=== PATIENT | male | born 1955 | race Caucasian/White ===

== ENCOUNTER 2018-03-13 14:40 | Emergency (ER) | payer MEDICAID ==
[~2018-03-13] VITALS: Ht 175.3 cm; Wt 98.0 kg
[~2018-03-13 14:40] MED LIST: ASPI-1265 PO; FENO45CA PO; FERR325T28 PO; INSU100V36 SQ; LANTUS SQ; LISI-222 PO; NIFE10CA2 PO; NORCO10T PO; OXYC-658 PO; TELM80TA5 PO
[2018-03-13 15:07] VITALS: BP 198/93
[2018-03-13] MEDS ORDERED: LORazepam 1 MG tablet PO ONE (15:25)
[2018-03-13] MEDS ORDERED: ipratropium/albuterol 3ml nebule NEB ONE (15:25)
[2018-03-13] MEDS ORDERED: levoFLOXACIN 250mg tablet PO ONE (15:45)
[2018-03-13 15:55] LABS: BASOPHILS # (AUTO) 0.2 X10'3 (0-0.2); BASOPHILS % (AUTO) 1.6 % (0-1); EOSINOPHILS # (AUTO) 0.2 X10'3 (0-0.9); EOSINOPHILS % (AUTO) 2.6 % (0-6); HEMATOCRIT 26.2 % (42.0-52.0); HEMOGLOBIN 8.9 g/dl (14.0-17.9); LYMPHOCYTES # (AUTO) 0.4 X10'3 (1.1-4.8); LYMPHOCYTES % (AUTO) 4.6 % (21-51); MEAN CORPUSCULAR HEMOGLOBIN 33.7 PG (27.0-31.0); MEAN CORPUSCULAR HGB CONC 34.1 % (33.0-36.5); MEAN CORPUSCULAR VOLUME 99.1 FL (78-98); MONOCYTES # (AUTO) 0.6 X10'3 (0-0.9); NEUTROPHILS # (AUTO) 8.2 X10'3 (1.8-7.7); NEUTROPHILS % (AUTO) 85.2 % (42-75); PLATELET COUNT 136 X10'3 (140-440); RED BLOOD COUNT 2.65 X10'6 (4.70-6.10); RED CELL DISTRIBUTION WIDTH 13.1 % (11.5-14.5); WHITE BLOOD COUNT 9.6 X10'3 (4.5-11.0)
[2018-03-13] MEDS ORDERED: BENZ-38 PO (16:04)
[2018-03-13] MEDS ORDERED: DOXY100C43 PO (16:04)
[2018-03-13] MEDS ORDERED: ALBU8.5H8 IH (16:04)
[2018-03-13] MEDS ORDERED: acetaminophen 325mg tablet PO ONE (16:05)
[2018-03-13 16:12] LABS: ALANINE AMINOTRANSFERASE 17 U/L (12-78); ALBUMIN/GLOBULIN RATIO 0.7 (1.1-1.5); ALKALINE PHOSPHATASE 36 IU/L (46-116); ANION GAP 7 (8-16); ASPARTATE AMINO TRANSFERASE 12 U/L (10-37); BILIRUBIN,TOTAL 0.3 MG/DL (0.1-1.0); BLOOD UREA NITROGEN 43 MG/DL (7-18); BUN/CREATININE RATIO 14.6 (5.4-32.0); CALCIUM 9.2 MG/DL (8.5-10.1); CHLORIDE 107 MMOL/L (99-107); CREATININE 2.95 MG/DL (0.60-1.10); GLUCOSE 179 MG/DL (70-104); POTASSIUM 4.6 MMOL/L (3.5-5.1); SODIUM 140 MMOL/L (135-145); TOTAL CARBON DIOXIDE 26.3 MMOL/L (24-32); TOTAL PROTEIN 7.3 G/DL (6.4-8.2); eGFR 22 ML/MIN
[2018-03-13 16:20] LABS: PLATELET ESTIMATE DECREASED
== END 2018-03-13 17:32 | disposition home or self-care (01) ==
LOC: ER 14:41
DX: J20.9 Acute bronchitis, unspecified (principal); I10 Essential (primary) hypertension; E11.9 Type 2 diabetes mellitus without complications; E78.00 Pure hypercholesterolemia, unspecified; G89.29 Other chronic pain; Z79.4 Long term (current) use of insulin; Z79.02 Long term (current) use of antithrombotics/antiplatelets; Z79.899 Other long term (current) drug therapy; Z98.890 Other specified postprocedural states
CPT/HCPCS: 36415; 71046; 80053; 83605; 83880; 84145; 84484; 85025; 85379; 87040; 87502; 87503; 94640; 99285

== ENCOUNTER 2018-06-07 06:01 | Emergency (ER) | payer MEDICAID ==
[~2018-06-07] VITALS: Ht 175.3 cm; Wt 100.0 kg
[~2018-06-07 06:01] MED LIST changes: +ALBU8.5H8 IH
[2018-06-07 06:07] VITALS: BP 128/62
[2018-06-07] MEDS ORDERED: ketorolac trometh inj. 60 MG/2 ML VIAL IM ONE (06:35)
== END 2018-06-07 07:07 | disposition home or self-care (01) ==
LOC: ER 06:02
DX: G89.29 Other chronic pain (principal); M54.2 Cervicalgia; M54.9 Dorsalgia, unspecified; I10 Essential (primary) hypertension; E11.9 Type 2 diabetes mellitus without complications; E78.00 Pure hypercholesterolemia, unspecified; Z76.0 Encounter for issue of repeat prescription; Z79.82 Long term (current) use of aspirin; Z79.899 Other long term (current) drug therapy; Z86.69 Personal history of other diseases of the nervous system and sense organs
CPT/HCPCS: 96372; 99283; J1885

== ENCOUNTER 2018-08-24 06:20 | Emergency (ER) | payer MEDICAID ==
[~2018-08-24] VITALS: Ht 175.3 cm; Wt 104.4 kg
[2018-08-24 06:24] VITALS: BP 169/80
[2018-08-24] MEDS ORDERED: LIDOcaine/epinephrine TOPICAL 5 ML BTL TOP ONE (06:45)
[2018-08-24] MEDS ORDERED: TETanus/Pertussis (Acell)/Diphther VAC/PF (Tdap-Adult) 0.5ml syringe IM ONE (06:45)
[2018-08-24] MEDS ORDERED: HYDROcodone/acetaminophen 5mg/325mg tablet PO ONE (08:10)
== END 2018-08-24 08:17 | disposition home or self-care (01) ==
LOC: ER 06:20
DX: S51.812A Laceration without foreign body of left forearm, initial encounter (principal); S10.93XA Contusion of unspecified part of neck, initial encounter; I10 Essential (primary) hypertension; E78.00 Pure hypercholesterolemia, unspecified; E11.9 Type 2 diabetes mellitus without complications; G89.29 Other chronic pain; M54.9 Dorsalgia, unspecified; Z79.4 Long term (current) use of insulin; Z79.82 Long term (current) use of aspirin; W18.30XA Fall on same level, unspecified, initial encounter; Y93.89 Activity, other specified; Y92.89 Other specified places as the place of occurrence of the external cause; Y99.8 Other external cause status
CPT/HCPCS: 90471; 90715; 99283

== ENCOUNTER 2019-01-30 12:34 | Inpatient (IN) | payer MEDICAID ==
[2019-01-30] VITALS (10 sets, daily range): BP systolic 128–185; BP diastolic 61–86
[~2019-01-30] VITALS: Ht 175.3 cm; Wt 98.2 kg
[~2019-01-30 12:34] MED LIST changes: +adenosine 3mg/ml 2ml vial IV ONE; +dextrose 50%-water 50ml dispensing syringe IV ONE
[2019-01-30 13:01] LABS: MEAN CORPUSCULAR VOLUME 113.6 FL (78-98); RED BLOOD COUNT 1.84 X10'6 (4.70-6.10); WHITE BLOOD COUNT 6.7 X10'3 (4.5-11.0)
[2019-01-30 13:02] LABS: MEAN CORPUSCULAR HEMOGLOBIN 36.6 PG (27.0-31.0); MEAN CORPUSCULAR HGB CONC 32.2 g/dL (33.0-36.5); MEAN PLATELET VOLUME 11.1 FL (7.4-10.4); PLATELET COUNT 58 X10'3 (140-440); RED CELL DISTRIBUTION WIDTH 16.4 % (11.5-14.5)
[2019-01-30 13:16] LABS: HEMATOCRIT 20.9 % (42.0-52.0); HEMOGLOBIN 6.7 g/dl (14.0-17.9)
[2019-01-30 13:22] LABS: ALANINE AMINOTRANSFERASE 32 U/L (12-78); ALBUMIN 3.1 G/DL (3.4-5.0); ALBUMIN/GLOBULIN RATIO 0.8 (1.1-1.5); ALKALINE PHOSPHATASE 23 IU/L (46-116); ANION GAP 8 (8-16); ASPARTATE AMINO TRANSFERASE 21 U/L (10-37); BILIRUBIN,TOTAL 0.4 MG/DL (0.1-1.0); BLOOD UREA NITROGEN 80 MG/DL (7-18); BUN/CREATININE RATIO 15.7 (5.4-32.0); CALCIUM 8.2 MG/DL (8.5-10.1); CHLORIDE 107 MMOL/L (99-107); CREATININE 5.11 MG/DL (0.60-1.10); GLUCOSE 160 MG/DL (70-104); LIPASE < 50 U/L (73-393); MAGNESIUM 1.9 MG/DL (1.5-2.4); SODIUM 137 MMOL/L (135-145); TOTAL CARBON DIOXIDE 21.8 MMOL/L (24-32); TOTAL PROTEIN 6.8 G/DL (6.4-8.2); eGFR 12 ML/MIN
[2019-01-30 13:23] LABS: POTASSIUM 8.5 MMOL/L (3.5-5.1)
[2019-01-30] MEDS ORDERED: calcium chloride 100 MG/1 ML inj IV ONE ×3 (13:30→17:50)
[2019-01-30] MEDS ORDERED: insulin regular, human 10 units/0.1 ml syringe IV ONE ×2 (13:30→17:50)
[2019-01-30] MEDS ORDERED: sodium polystyrene sulfonate 15gm/60ml oral suspension PO ONE ×2 (13:30→17:50)
[2019-01-30] MEDS ORDERED: normal saline 1000ML IV soln IVB ONE (13:30)
[2019-01-30 13:39] LABS: CLARITY,URINE CLEAR (Clear); COLOR,URINE YELLOW (Yellow); GLUCOSE, URINE NEGATIVE (Neg); KETONES,URINE NEGATIVE (Neg); LEUKOCYTE ESTERASE ,URINE NEGATIVE (Neg); NITRITES, URINE NEGATIVE (Neg); OCCULT BLOOD,URINE LARGE (Neg); PROTEIN,URINE >=300 mg/dl (Neg); UROBILINOGEN,URINE 0.2 E.U/dL (0.2-1.0)
[2019-01-30 13:40] LABS: UA COLLECTION TYPE STRAIGHT CATH
[2019-01-30 13:50] LABS: AMORPHOUS URATES 1+; BACTERIA,URINE NONE SEEN /HPF (Neg); HYALINE CASTS 0-3 /LPF (NEGATIVE); MUCUS STRANDS FEW /LPF (Neg); RBC,URINE 0-2 /HPF (0-2); SPERM FEW /HPF (NEGATIVE); SQUAMOUS EPITHELIAL CELL,UR NONE SEEN /LPF (FEW); WBC,URINE 0-4 /HPF (0-4)
[2019-01-30] MEDS ORDERED: dextrose 50%-water 50ml dispensing syringe IV ONE ×2 (13:50→17:50)
[2019-01-30] MEDS ORDERED: sodium bicarbonate (8.4%) 1 mEq/ml syringe IV ONE (14:15)
[2019-01-30] MEDS ORDERED: normal saline 1000ml 1,000 ML IV SCH (14:16)
[2019-01-30] MEDS ORDERED: HYDROcodone/acetaminophen 5mg/325mg tablet PO PRN (14:20)
[2019-01-30] MEDS ORDERED: acetaminophen 325mg tablet PO PRN (14:20)
[2019-01-30] MEDS ORDERED: ondansetron/PF 4mg/2ml inj IV PRN (14:20)
[2019-01-30] MEDS ORDERED: dextrose ORAL solution 15 GM/59 ML bottle PO PRN ×2 (14:25)
[2019-01-30] MEDS ORDERED: glucagon, human recombinant 1mg kit SUBCUT PRN (14:25)
[2019-01-30] MEDS ORDERED: MESSAGE TO PHARMACY PO ONE (14:25)
[2019-01-30] MEDS ORDERED: dextrose 50%-water 50ml dispensing syringe IV PRN ×2 (14:25)
[2019-01-30] MEDS: morphine 2 MG/ML inj. syringe IV PRN ×2 (14:35→23:54)
[2019-01-30] MEDS ORDERED: nitroGLYCERIN 0.4mg SUBLingual tab SL PRN (14:40)
[2019-01-30] MEDS ORDERED: morphine 4 MG/ML inj SYRINge IV ONE (14:45)
[2019-01-30] MEDS ORDERED: ondansetron/PF 4mg/2ml inj IV ONE (14:45)
[2019-01-30 14:52] LABS: PHOSPHORUS 5.7 MG/DL (2.3-4.5)
[2019-01-30 14:53] LABS: HEMOGLOBIN A1C 6.5 % (4.5-6.2)
[2019-01-30 14:59] LABS: POTASSIUM 7.9 MMOL/L (3.5-5.1)
[2019-01-30] MEDS ORDERED: albuterol 2.5 MG/3 ML nebule NEB SCH (15:00)
[2019-01-30] MEDS: sodium bicarbonate (8.4%) inj. 75 MEQ in dextrose 5% water 500ml 500 ML IV SCH ×4 (15:18→23:05)
[2019-01-30 16:45] LABS: CLARITY,URINE CLOUDY (Clear); COLOR,URINE RED (Yellow); GLUCOSE, URINE NEGATIVE (Neg); KETONES,URINE NEGATIVE (Neg); LEUKOCYTE ESTERASE ,URINE NEGATIVE (Neg); NITRITES, URINE NEGATIVE (Neg); OCCULT BLOOD,URINE LARGE (Neg); PROTEIN,URINE 100 mg/dl (Neg); UROBILINOGEN,URINE 0.2 E.U/dL (0.2-1.0)
[2019-01-30 16:50] LABS: UA COLLECTION TYPE FOLEY CATH
[2019-01-30 16:51] LABS: BACTERIA,URINE FEW /HPF (Neg); MUCUS STRANDS MODERATE /LPF (Neg); RBC,URINE TNTC /HPF (0-2); SQUAMOUS EPITHELIAL CELL,UR MODERATE /LPF (FEW); WBC,URINE 0-4 /HPF (0-4)
[2019-01-30 16:52] LABS: AMORPHOUS URATES 1+; SPERM FEW /HPF (NEGATIVE)
[2019-01-30 16:54] LABS: ALANINE AMINOTRANSFERASE 29 U/L (12-78); ALBUMIN 2.9 G/DL (3.4-5.0); ALBUMIN/GLOBULIN RATIO 0.8 (1.1-1.5); ALKALINE PHOSPHATASE 24 IU/L (46-116); ANION GAP 5 (8-16); ASPARTATE AMINO TRANSFERASE 19 U/L (10-37); BILIRUBIN,TOTAL 0.4 MG/DL (0.1-1.0); BLOOD UREA NITROGEN 75 MG/DL (7-18); BUN/CREATININE RATIO 15.6 (5.4-32.0); CALCIUM 9.6 MG/DL (8.5-10.1); CHLORIDE 110 MMOL/L (99-107); CREATININE 4.82 MG/DL (0.60-1.10); GLUCOSE 155 MG/DL (70-104); SODIUM 140 MMOL/L (135-145); TOTAL CARBON DIOXIDE 24.7 MMOL/L (24-32); TOTAL PROTEIN 6.5 G/DL (6.4-8.2); eGFR 12 ML/MIN
[2019-01-30 16:54] LABS: TOTAL PROTEIN,URINE RANDOM 125.7 MG/DL
[2019-01-30 16:56] LABS: POTASSIUM 8.1 MMOL/L (3.5-5.1)
--- NOTE | 2019-01-30 17:10 | NUR ---
Critical potassium 8.1; Primary care nurse Vicki RN notified
--- NOTE | 2019-01-30 18:25 | NUR ---
Patient in room ICU 2037. I have received report from say shift RN had the opportunity to ask questions and assume patient care. pt resting in bed, all monitoring alarms audible, bicarb gtt waiting on new bag. will treat current potassium as ordered. no c/o pain, no s/s of distress. will continue to monitor.
[2019-01-30] MEDS: docusate sod 100mg capsule PO SCH (20:00)
[2019-01-30 20:35] LABS: HEMOGLOBIN 7.6 g/dl (14.0-17.9)
[2019-01-30 20:36] LABS: HEMATOCRIT 23.2 % (42.0-52.0); MEAN CORPUSCULAR HEMOGLOBIN 35.1 PG (27.0-31.0); MEAN CORPUSCULAR HGB CONC 32.6 g/dL (33.0-36.5); MEAN CORPUSCULAR VOLUME 107.4 FL (78-98); MEAN PLATELET VOLUME 11.1 FL (7.4-10.4); RED BLOOD COUNT 2.16 X10'6 (4.70-6.10); RED CELL DISTRIBUTION WIDTH 21.3 % (11.5-14.5); WHITE BLOOD COUNT 5.5 X10'3 (4.5-11.0)
[2019-01-30 20:43] LABS: PLATELET COUNT 49 X10'3 (140-440)
[2019-01-30 20:51] LABS: ANION GAP 5 (8-16); BLOOD UREA NITROGEN 74 MG/DL (7-18); BUN/CREATININE RATIO 15.3 (5.4-32.0); CALCIUM 9.4 MG/DL (8.5-10.1); CHLORIDE 108 MMOL/L (99-107); CREATININE 4.83 MG/DL (0.60-1.10); GLUCOSE 300 MG/DL (70-104); SODIUM 139 MMOL/L (135-145); TOTAL CARBON DIOXIDE 25.8 MMOL/L (24-32); eGFR 12 ML/MIN
[2019-01-30 21:00] LABS: POTASSIUM 7.4 MMOL/L (3.5-5.1)
[2019-01-30] MEDS ORDERED: temazepam 15mg capsule PO PRN (21:00)
[2019-01-30] MEDS: insulin glargine (Lantus) pen - multi-dose SQ SCH (21:00)
[2019-01-30 22:16] LABS: ALBUMIN 2.9 G/DL (3.4-5.0); ANION GAP 4 (8-16); BLOOD UREA NITROGEN 72 MG/DL (7-18); BUN/CREATININE RATIO 14.6 (5.4-32.0); CALCIUM 9.8 MG/DL (8.5-10.1); CHLORIDE 110 MMOL/L (99-107); CREATININE 4.92 MG/DL (0.60-1.10); GLUCOSE 208 MG/DL (70-104); SODIUM 142 MMOL/L (135-145); TOTAL CARBON DIOXIDE 27.8 MMOL/L (24-32); eGFR 12 ML/MIN
[2019-01-30 22:19] LABS: POTASSIUM 6.7 MMOL/L (3.5-5.1)
--- NOTE | 2019-01-30 22:58 | NUR ---
i Called Bob Radha at this time and notified him of pt HTN. 202 systolic was highest reading. current is 186 systolic. Bob gave order for 10mg of Hydralazine IV. orders entered. i told him that pt appears to have some ST changes particularly in lead 2. a 12 lead was obtained that reports 'suggests ischemia in lateral leads'. this was relayed to Bob. Troponin drawn. no other changes in orders at this time.
[2019-01-30] MEDS ORDERED: hydrALAZINE 20mg/ml inj. IV ONE (23:00)
[2019-01-30 23:39] LABS: ALANINE AMINOTRANSFERASE 33 U/L (12-78); ALBUMIN 3.3 G/DL (3.4-5.0); ALBUMIN/GLOBULIN RATIO 0.9 (1.1-1.5); ALKALINE PHOSPHATASE 27 IU/L (46-116); ANION GAP 3 (8-16); ASPARTATE AMINO TRANSFERASE 25 U/L (10-37); BILIRUBIN,TOTAL 0.4 MG/DL (0.1-1.0); BLOOD UREA NITROGEN 74 MG/DL (7-18); BUN/CREATININE RATIO 15.2 (5.4-32.0); CHLORIDE 107 MMOL/L (99-107); CREATININE 4.86 MG/DL (0.60-1.10); GLUCOSE 267 MG/DL (70-104); PHOSPHORUS 7.1 MG/DL (2.3-4.5); SODIUM 141 MMOL/L (135-145); TOTAL CARBON DIOXIDE 31.1 MMOL/L (24-32); TOTAL PROTEIN 7.1 G/DL (6.4-8.2); TROPONIN I < 0.04 NG/ML (0.0-0.05); eGFR 12 ML/MIN
[2019-01-30 23:46] LABS: POTASSIUM 6.4 MMOL/L (3.5-5.1)
[2019-01-30] MEDS: nitroGLYCERIN-Tridil 50MG/D5W 250 ML IV PRN (23:47)
[2019-01-31] VITALS (30 sets, daily range): BP systolic 115–181; BP diastolic 58–86
[2019-01-31] MEDS ORDERED: morphine 4 MG/ML inj SYRINge IM ONE (00:25)
[2019-01-31] MEDS ORDERED: morphine 2 MG/ML inj. syringe IV PRN (00:25)
[2019-01-31] MEDS ORDERED: morphine 4 MG/ML inj SYRINge IV PRN ×3 (00:25)
[2019-01-31 00:27] LABS: HEMOGLOBIN 8.1 g/dl (14.0-17.9); WHITE BLOOD COUNT 5.4 X10'3 (4.5-11.0)
[2019-01-31 00:29] LABS: HEMATOCRIT 24.5 % (42.0-52.0); MEAN CORPUSCULAR HEMOGLOBIN 35.1 PG (27.0-31.0); MEAN CORPUSCULAR HGB CONC 33.2 g/dL (33.0-36.5); MEAN CORPUSCULAR VOLUME 105.7 FL (78-98); PLATELET COUNT 58 X10'3 (140-440); RED BLOOD COUNT 2.32 X10'6 (4.70-6.10); RED CELL DISTRIBUTION WIDTH 20.7 % (11.5-14.5)
[2019-01-31 00:57] LABS: ANISOCYTOSIS 3+; PLATELET ESTIMATE DECREASED; TOTAL CELLS COUNTED 100
[2019-01-31 00:58] LABS: LARGE PLATELETS FEW; POLYCHROMASIA FEW; STOMATOCYTES FEW
[2019-01-31] MEDS ORDERED: furosemide 40mg/4ml inj IV ONE (01:20)
[2019-01-31 01:42] LABS: PARTIAL THROMBOPLASTIN TIME 25 SECONDS (22-32)
[2019-01-31] MEDS: sodium bicarbonate (8.4%) inj. 75 MEQ in dextrose 5% water 500ml 500 ML IV SCH (03:26)
[2019-01-31 03:47] LABS: HEMOGLOBIN 7.2 g/dl (14.0-17.9); WHITE BLOOD COUNT 5.4 X10'3 (4.5-11.0)
[2019-01-31 03:49] LABS: MEAN CORPUSCULAR HEMOGLOBIN 35.2 PG (27.0-31.0); MEAN CORPUSCULAR HGB CONC 32.9 g/dL (33.0-36.5); MEAN CORPUSCULAR VOLUME 106.9 FL (78-98); MEAN PLATELET VOLUME 10.9 FL (7.4-10.4); RED BLOOD COUNT 2.05 X10'6 (4.70-6.10); RED CELL DISTRIBUTION WIDTH 20.8 % (11.5-14.5)
[2019-01-31 04:21] LABS: ALANINE AMINOTRANSFERASE 31 U/L (12-78); ALBUMIN 2.7 G/DL (3.4-5.0); ALBUMIN/GLOBULIN RATIO 0.8 (1.1-1.5); ALKALINE PHOSPHATASE 24 IU/L (46-116); ANION GAP 2 (8-16); ASPARTATE AMINO TRANSFERASE 32 U/L (10-37); BILIRUBIN,TOTAL 0.5 MG/DL (0.1-1.0); BLOOD UREA NITROGEN 71 MG/DL (7-18); BUN/CREATININE RATIO 14.8 (5.4-32.0); CHLORIDE 109 MMOL/L (99-107); CHOL/HDL RATIO 2.9 (0.00-4.99); CHOLESTEROL 63 MG/DL (0-200); CREATININE 4.79 MG/DL (0.60-1.10); GLUCOSE 227 MG/DL (70-104); HDL CHOLESTEROL 22 MG/DL (35-60); LDL CHOLESTEROL 33 MG/DL (50-100); MAGNESIUM 1.7 MG/DL (1.5-2.4); SODIUM 142 MMOL/L (135-145); TRIGLYCERIDES 64 MG/DL (20-135); eGFR 12 ML/MIN
[2019-01-31 04:26] LABS: POTASSIUM 6.2 MMOL/L (3.5-5.1)
[2019-01-31 04:42] LABS: ANISOCYTOSIS 3+; LARGE PLATELETS FEW; PLATELET ESTIMATE DECREASED; POLYCHROMASIA FEW; STOMATOCYTES FEW; TOTAL CELLS COUNTED 100
--- NOTE | 2019-01-31 05:22 | NUR ---
Late entry: [address] depression in lead II, pt has no c/o pain, labs drawn. 2346 Nitro gtt started pt c/o 8 chest pain, pressure, radiating to right arm, 12 lead, morphine given 001 chest pain 04/08, nitro gtt titrated per protocol 0020 no change in chest pain, audible wheezing, chest xray ordered, morphine IV push orders changed. 0115 orders for lasix one time IV push, chest pain back after being at 010 0445 critical trop 2.05, k 6.2, hct 21.9, plt 49 All orders and critical values where called to Aric Garcia NP throughout night. Addendum: 01/31/19 at 0530 by Shabnam Huang RN No heparin gtt at this time for increased trop d/t H&H, will redraw in 3hrs,
--- NOTE | 2019-01-31 06:26 | NUR ---
Problems reprioritized. Patient report given, questions answered & plan of care reviewed with Mana FERGUSON.
--- NOTE | 2019-01-31 06:30 | NUR ---
Patient in room ICU 2037. I have received report from night coordinator RN and had the opportunity to ask questions and assume patient care.
--- NOTE | 2019-01-31 07:00 | NUR ---
assessing patient, and minimal responsiveness noted, unable to follow commands, does not open eyes, tactile stimulation with minimal response, painful stimuli with slight eye opening. stat abg called for, etco2 applied to patient via nasal cannula, result is 71, abd firm and distended, Intra abdominal pressure applied and result is 25-28 on end expiration. called placed to Dr Escobedo with abg result at 0720, new orders received and implemented.
[2019-01-31 07:21] LABS: ABG BASE EXCESS 3.4 mmol/L (-2.0-3.0); ABG HCO3 30.8 mmol/L (22.0-26.0); ABG PCO2 (T) 65.9 mmHg (35.0-45.0); ABG PH (T) 7.287 (7.350-7.450); ABG PO2 (T) 75.5 mmHg (83-108); ALLEN'S TEST Positive; FCOHb 0.7 % (0.5-1.5); FLOW 2 L/min; FMetHb 0.3 % (0.3-1.12); FO2Hb 93.1 % (94-100); TOTAL HEMOGLOBIN 7.9 G/dl (14.0-17.9)
[2019-01-31] MEDS ORDERED: furosemide 40mg/4ml inj ONE (07:32)
[2019-01-31 07:38] LABS: TROPONIN I 11.17 NG/ML (0.0-0.05)
[2019-01-31] MEDS: docusate sod 100mg capsule PO SCH ×2 (08:00→19:48)
[2019-01-31 09:45] LABS: NUCLEATED RED BLOOD CELLS 1 /100WBC (0-0); PLATELET ESTIMATE DECREASED; TOTAL CELLS COUNTED 100
[2019-01-31 09:47] LABS: ANISOCYTOSIS 1+; POLYCHROMASIA 1+
[2019-01-31 09:50] LABS: HYPOCHROMASIA 1+
[2019-01-31 10:21] LABS: HEMATOCRIT 21.9 % (42.0-52.0)
[2019-01-31 10:21] LABS: ALBUMIN 2.7 G/DL (3.4-5.0); ANION GAP 6 (8-16); BLOOD UREA NITROGEN 71 MG/DL (7-18); BUN/CREATININE RATIO 15.1 (5.4-32.0); CALCIUM 8.7 MG/DL (8.5-10.1); CHLORIDE 107 MMOL/L (99-107); GLUCOSE 211 MG/DL (70-104); POTASSIUM 5.9 MMOL/L (3.5-5.1); SODIUM 143 MMOL/L (135-145); TOTAL CARBON DIOXIDE 30.2 MMOL/L (24-32); eGFR 13 ML/MIN
[2019-01-31 10:22] LABS: PLATELET COUNT 45 X10'3 (140-440)
[2019-01-31 10:36] LABS: ABG BASE EXCESS 2.6 mmol/L (-2.0-3.0); ABG HCO3 28.8 mmol/L (22.0-26.0); ABG OXYGEN SATURATION 84.4 % (95-98); ABG PCO2 (T) 53.3 mmHg (35.0-45.0); ABG PO2 (T) 47.4 mmHg (83-108); ALLEN'S TEST Positive; FCOHb 0.9 % (0.5-1.5); FMetHb 0.2 % (0.3-1.12); FO2Hb 83.5 % (94-100); MINUTE VOLUME 15 L/min; RESPIRATORY RATE 20 b/min; RESPIRATORY RATE (OBSERVED) 25 b/min; TOTAL HEMOGLOBIN 8.5 G/dl (14.0-17.9)
[2019-01-31 12:31] LABS: OCCULT BLOOD STOOL NEGATIVE (Neg)
[2019-01-31] MEDS: ESOMEPRAZOLE 40 MG VIAL IV SCH ×2 (13:18→19:48)
[2019-01-31] MEDS: acetaminophen 325mg tablet PO PRN (13:19)
[2019-01-31 13:25] LABS: TROPONIN I 17.86 NG/ML (0.0-0.05)
--- NOTE | 2019-01-31 13:30 | NUR ---
awake and responding appropriately, verbalizing to remove mask, and that he is thirsty. same done, etco2 via nasal cannula applied to monitor co2 levels level showing 61 .
[2019-01-31 13:50] LABS: CLARITY,URINE CLOUDY (Clear); COLOR,URINE RED (Yellow); GLUCOSE, URINE NEGATIVE (Neg); KETONES,URINE NEGATIVE (Neg); LEUKOCYTE ESTERASE ,URINE NEGATIVE (Neg); NITRITES, URINE NEGATIVE (Neg); OCCULT BLOOD,URINE LARGE (Neg); PROTEIN,URINE 100 mg/dl (Neg); UROBILINOGEN,URINE 0.2 E.U/dL (0.2-1.0)
[2019-01-31 13:57] LABS: UA COLLECTION TYPE NON-SPECIFIED
[2019-01-31 13:59] LABS: RBC,URINE TNTC /HPF (0-2)
[2019-01-31 14:00] LABS: BACTERIA,URINE 1+ /HPF (Neg); SQUAMOUS EPITHELIAL CELL,UR FEW /LPF (FEW); WBC,URINE 0-4 /HPF (0-4)
--- NOTE | 2019-01-31 15:00 | NUR ---
sitting at edge of bed, tolerating well, does not remember any events from yesterday or today, needs frequent reminding of current events. drinking water without problems, does not want to eat.
[2019-01-31] MEDS ORDERED: heparin 10,000 units/1 ML INJ IV ONE (16:10)
[2019-01-31] MEDS ORDERED: heparin 25,000 UNIT/250ml bag 250 ML IV SCH (16:10)
[2019-01-31] MEDS ORDERED: heparin 10,000 units/1 ML INJ IV PRN (16:10)
--- NOTE | 2019-01-31 16:30 | NUR ---
bipap off, tolerating well, mentation clear, awake and alert
--- NOTE | 2019-01-31 18:25 | NUR ---
Patient in room ICU 2037. I have received report from Mana HAGEN and had the opportunity to ask questions and assume patient care. Addendum: 01/31/19 at 1925 by Shabnam Huang RN Patient in room ICU 2037. I have received report from Mana FERGUSON and had the opportunity to ask questions and assume patient care. Pt resting in bed, no c/o pain, VSS, no s/s of distress, see interventions, 1LNC with spo2 at 96%, Nitro gtt for chest pain control, see IV spreadsheet for more information. All monitoring alarms audible. Labs pending. Will continue to monitor.
[2019-01-31] MEDS ORDERED: NIFE60TA79 PO (19:17)
[2019-01-31] MEDS ORDERED: CARV-50 PO (19:30)
[2019-01-31] MEDS ORDERED: INSU100I8 SQ (19:30)
[2019-01-31] MEDS ORDERED: GABA-532 PO (19:30)
[2019-01-31] MEDS ORDERED: LISI40TA4 (19:30)
[2019-01-31] MEDS ORDERED: FLUT16SP26 (19:30)
[2019-01-31] MEDS ORDERED: LANTUS SQ (19:30)
[2019-01-31] MEDS ORDERED: CETI10TA14 PO (19:30)
[2019-01-31] MEDS ORDERED: VENL37.589 PO (19:30)
[2019-01-31] MEDS ORDERED: FENO134C PO (19:30)
[2019-01-31] MEDS ORDERED: FLO0.4C PO (19:30)
[2019-01-31] MEDS: nitroGLYCERIN-Tridil 50MG/D5W 250 ML IV PRN (19:49)
[2019-01-31 19:54] LABS: MEAN CORPUSCULAR HGB CONC 33.3 g/dL (33.0-36.5)
[2019-01-31 19:56] LABS: HEMATOCRIT 26.2 % (42.0-52.0); HEMOGLOBIN 8.7 g/dl (14.0-17.9); MEAN CORPUSCULAR HEMOGLOBIN 33.3 PG (27.0-31.0); MEAN CORPUSCULAR VOLUME 99.8 FL (78-98); MEAN PLATELET VOLUME 11.1 FL (7.4-10.4); RED BLOOD COUNT 2.62 X10'6 (4.70-6.10); RED CELL DISTRIBUTION WIDTH 23.3 % (11.5-14.5); WHITE BLOOD COUNT 6.3 X10'3 (4.5-11.0)
[2019-01-31 20:03] LABS: PLATELET COUNT 40 X10'3 (140-440)
[2019-01-31 20:14] LABS: TROPONIN I 14.96 NG/ML (0.0-0.05)
--- NOTE | 2019-01-31 20:15 | NUR ---
Called Aric Garcia NP regarding critical troponin of 14.96, which is improved from 17.86, no change in orders. Also notified WORKDAY DIRECTOR of critical platelets of 40, no change in orders. Reviewed Dr. Gu's recommendations of keeping hgb around 10 and pt is currently 8.7, per Radha WORKDAY DIRECTOR will recheck H&H with am labs, no orders to give blood products at this time.
[2019-01-31 20:21] LABS: ALANINE AMINOTRANSFERASE 29 U/L (12-78); ALBUMIN 2.7 G/DL (3.4-5.0); ALBUMIN/GLOBULIN RATIO 0.8 (1.1-1.5); ALKALINE PHOSPHATASE 25 IU/L (46-116); ANION GAP 4 (8-16); ASPARTATE AMINO TRANSFERASE 58 U/L (10-37); BILIRUBIN,TOTAL 1.1 MG/DL (0.1-1.0); BLOOD UREA NITROGEN 73 MG/DL (7-18); BUN/CREATININE RATIO 15.8 (5.4-32.0); CALCIUM 8.4 MG/DL (8.5-10.1); CHLORIDE 105 MMOL/L (99-107); CREATININE 4.61 MG/DL (0.60-1.10); GLUCOSE 191 MG/DL (70-104); POTASSIUM 4.9 MMOL/L (3.5-5.1); SODIUM 142 MMOL/L (135-145); TOTAL PROTEIN 6.2 G/DL (6.4-8.2); eGFR 13 ML/MIN
[2019-01-31 20:25] LABS: ANISOCYTOSIS 3+; PLATELET ESTIMATE DECREASED; TOTAL CELLS COUNTED 100
[2019-01-31 20:26] LABS: POLYCHROMASIA FEW; STOMATOCYTES 1+
--- NOTE | 2019-01-31 20:37 | NUR ---
Patient refused oral care and bed bath, educated pt still refusing at this time. Will continue to monitor.
[2019-01-31] MEDS: insulin glargine (Lantus) pen - multi-dose SQ SCH (21:24)
[2019-02-01] VITALS (18 sets, daily range): BP systolic 96–183; BP diastolic 43–85
[2019-02-01] MEDS: acetaminophen 325mg tablet PO PRN (01:23)
--- NOTE | 2019-02-01 04:21 | NUR ---
Pt awake, alert and orientated x4, eating saltine crackers and watching TV, no complaints of pain, VSS. Pt stating that he wants to go home.
[2019-02-01 05:22] LABS: WHITE BLOOD COUNT 5.7 X10'3 (4.5-11.0)
[2019-02-01 05:24] LABS: HEMATOCRIT 24.5 % (42.0-52.0); HEMOGLOBIN 8.4 g/dl (14.0-17.9); MEAN CORPUSCULAR HGB CONC 34.3 g/dL (33.0-36.5); MEAN CORPUSCULAR VOLUME 99.3 FL (78-98); MEAN PLATELET VOLUME 11.6 FL (7.4-10.4); RED BLOOD COUNT 2.46 X10'6 (4.70-6.10); RED CELL DISTRIBUTION WIDTH 22.8 % (11.5-14.5)
[2019-02-01 05:27] LABS: PLATELET COUNT 40 X10'3 (140-440)
[2019-02-01 05:46] LABS: ALANINE AMINOTRANSFERASE 32 U/L (12-78); ALBUMIN 2.5 G/DL (3.4-5.0); ALBUMIN/GLOBULIN RATIO 0.7 (1.1-1.5); ALKALINE PHOSPHATASE 23 IU/L (46-116); ANION GAP 7 (8-16); ASPARTATE AMINO TRANSFERASE 44 U/L (10-37); BILIRUBIN,TOTAL 0.9 MG/DL (0.1-1.0); BLOOD UREA NITROGEN 70 MG/DL (7-18); CALCIUM 7.8 MG/DL (8.5-10.1); CHLORIDE 103 MMOL/L (99-107); CREATININE 4.37 MG/DL (0.60-1.10); GLUCOSE 135 MG/DL (70-104); MAGNESIUM 1.4 MG/DL (1.5-2.4); POTASSIUM 4.6 MMOL/L (3.5-5.1); SODIUM 142 MMOL/L (135-145); TOTAL CARBON DIOXIDE 31.8 MMOL/L (24-32); eGFR 14 ML/MIN
[2019-02-01 05:58] LABS: ANISOCYTOSIS 3+; PLATELET ESTIMATE DECREASED; POLYCHROMASIA FEW; STOMATOCYTES 1+; TOTAL CELLS COUNTED 100
--- NOTE | 2019-02-01 06:28 | NUR ---
Problems reprioritized. Patient report given, questions answered & plan of care reviewed with Mana FERGUSON.
[2019-02-01] MEDS: ESOMEPRAZOLE 40 MG VIAL IV SCH (08:20)
[2019-02-01] MEDS: docusate sod 100mg capsule PO SCH (08:20)
[2019-02-01] MEDS: insulin Lispro (HumaLOG) vial - multi-dose SQ SCH ×2 (08:39→13:25)
[2019-02-01] MEDS ORDERED: nitroGLYCERIN 0.4mg SUBLingual tab SL PRN (10:00)
[2019-02-01] MEDS ORDERED: cetirizine 10mg tablet PO PRN (10:05)
[2019-02-01] MEDS ORDERED: MYCOL15CR TP (11:46)
[2019-02-01] MEDS ORDERED: carVEDilol 12.5mg tablet PO SCH (11:58)
[2019-02-01] MEDS ORDERED: venlafaxine XR 37.5mg cap (Q24H) PO SCH (11:59)
[2019-02-01] MEDS ORDERED: gabapentin 300mg capsule PO SCH (11:59)
[2019-02-01] MEDS ORDERED: fluticasone nasal spray 16GM bottle NS SCH (11:59)
[2019-02-01] MEDS ORDERED: ferrous sulfate 325mg tablet PO SCH (11:59)
[2019-02-01] MEDS ORDERED: fenofibrate 145mg tablet PO SCH (12:00)
[2019-02-01] MEDS ORDERED: NIFEdipine XL 30mg tablet PO SCH (12:00)
[2019-02-01 12:32] LABS: RED BLOOD COUNT 2.78 X10'6 (4.70-6.10)
[2019-02-01 12:34] LABS: RETICULOCYTE % (AUTO) 1.2 % (0.5-1.5)
--- NOTE | 2019-02-01 12:37 | NUR ---
RN consult for renal diet education: patient has GFR of 12; choosing not to pursue dialysis. Patient admitted with hyperkalemia, now corrected. Has elevated phosphorus of 6, not currently on any binders. Patient and SO met at bedside and given written CKD handout for non-dialysis renal diet education, discussed phosphorus, potassium, sodium, fluids, and protein recommendations and provided RD contact information if any additional questions. Addendum: 02/01/19 at [address] Amended: Links added.
[2019-02-01 12:57] LABS: TROPONIN I 6.17 NG/ML (0.0-0.05)
[2019-02-01] MEDS ORDERED: nystatin/triamcinolone cream 15gm TP SCH ×2 (13:00)
--- NOTE | 2019-02-01 14:25 | NUR ---
Dr Escobedo notified that pt was 86% on RA when ambulating. Ordered home O2. Notified Sophia telephonic case manager.
--- NOTE | 2019-02-01 14:28 | NUR ---
O2 Sat at rest on room air:92___% If below 89%: Recovery O2 Sat at rest on ___LPM:___%:___% via (mask/nasal cannula, etc..) No further documentation is necessary. If O2 Sat did not drop below 89% on room air,ambulate patient on room air. O2 Sat while ambulating on room air:_86__% Recovery O2 Sat while ambulating on __92_LPM:___% No further documentation is necessary. If patient does not drop below 89% while ambulating, he/she does not qualify for home O2.
--- NOTE | 2019-02-01 14:55 | NUR ---
R wrist PIV and R FA PIV d/c canula intact, patient tolerated well, held additional length of pressure due to low platelets, no bleeding noted, dressed with 2x2 and paper tape
--- NOTE | 2019-02-01 15:10 | NUR ---
RN provided bedside teaching to pt and regarding [place], acute resp failure, DM survival skills and anemia. RN also provided med teachings on new and current medications. Pt signed AMA form, RN advised and RN to go to ED if having chest pains and/or shortness of breath. Pt has a follow up with db2 systems programmer on 03/05. Pt left ICU at 1510 via wheelchair with tech, spouse took all personal belongings.
[2019-02-02 13:18] LABS: HEP B CORE AB, IGM Negative (Negative); HEPATITIS C ANTIBODY <0.1 s/co ratio (0.0-0.9)
[2019-02-03 11:41] LABS: OCCULT BLOOD STOOL NEGATIVE (Neg)
== END 2019-02-01 15:15 | disposition home or self-care (01) | DRG 190 ==
LOC: ER 12:34 → EDBEDREQSVC 15:04 → ICU 2S 16:56 → CMPBEDREQ 02-01 15:15
PROVIDERS: ADMIT Internal Medicine; ATTEND Internal Medicine Critical Care Medicine
PROC: 30233N1 Transfusion of Nonautologous Red Blood Cells into Peripheral Vein, Percutaneous Approach (ICD-10-PCS; principal; 2019-01-30)
PROC: 30233N1 Transfusion of Nonautologous Red Blood Cells into Peripheral Vein, Percutaneous Approach (ICD-10-PCS; 2019-01-31)
PROC: 5A09357 Assistance with Respiratory Ventilation, Less than 24 Consecutive Hours, Continuous Positive Airway Pressure (ICD-10-PCS; 2019-01-31)
PROC: 30233N1 Transfusion of Nonautologous Red Blood Cells into Peripheral Vein, Percutaneous Approach (ICD-10-PCS; 2019-02-01)
DX: I21.A1 Myocardial infarction type 2 (principal); J96.01 Acute respiratory failure with hypoxia; G93.40 Encephalopathy, unspecified; J96.02 Acute respiratory failure with hypercapnia; N17.9 Acute kidney failure, unspecified; K92.2 Gastrointestinal hemorrhage, unspecified; D69.6 Thrombocytopenia, unspecified; E11.22 Type 2 diabetes mellitus with diabetic chronic kidney disease; E87.5 Hyperkalemia; F11.20 Opioid dependence, uncomplicated; D64.9 Anemia, unspecified; E78.00 Pure hypercholesterolemia, unspecified; E78.5 Hyperlipidemia, unspecified; E87.6 Hypokalemia; G89.4 Chronic pain syndrome; I12.9 Hypertensive chronic kidney disease with stage 1 through stage 4 chronic kidney disease, or unspecified chronic kidney disease; K21.9 Gastro-esophageal reflux disease without esophagitis; N40.0 Benign prostatic hyperplasia without lower urinary tract symptoms; N18.9 Chronic kidney disease, unspecified; I25.10 Atherosclerotic heart disease of native coronary artery without angina pectoris; M54.9 Dorsalgia, unspecified; R21 Rash and other nonspecific skin eruption; Z79.899 Other long term (current) drug therapy; Z79.4 Long term (current) use of insulin; Z79.82 Long term (current) use of aspirin
CPT/HCPCS: 36415; 36430; 36600; 71045; 74018; 76775; 80048; 80053; 80061; 81001; 82272; 82570; 82803; 82948; 83036; 83540; 83550; 83605; 83690; 83735; 83880; 84100; 84132; 84156; 84300; 84439; 84443; 84484; 85018; 85025; 85027; 85045; 85610; 85730; 86705; 86706; 86803; 86885; 86900; 86901; 86920; 87040; 87081; 93005; 93306; 93308; 94640; 94660; 94760; 96374; 96375; 97110; 97161; 97530; 99291; G0378; J0153; J0360; J1815; J1940; J2270; J2405; J3490; J7999; P9016

== ENCOUNTER 2019-03-07 07:07 | Emergency (ER) | payer MEDICAID ==
[~2019-03-07] VITALS: Ht 170.2 cm; Wt 98.0 kg
[~2019-03-07 07:07] MED LIST changes: -ALBU8.5H8 IH; -ASPI-1265 PO; +CARV-50 PO; +CETI10TA14 PO; +FENO134C PO; -FENO45CA PO; +FLO0.4C PO; +FLUT16SP26; +GABA-532 PO; +INSU100I8 SQ; -INSU100V36 SQ; -LISI-222 PO; +MYCOL15CR TP; -NIFE10CA2 PO; +NIFE60TA79 PO; -NORCO10T PO; -OXYC-658 PO; -TELM80TA5 PO; +VENL37.589 PO; -adenosine 3mg/ml 2ml vial IV ONE; -dextrose 50%-water 50ml dispensing syringe IV ONE
[2019-03-07 07:10] VITALS: BP 183/82
[2019-03-07] MEDS ORDERED: LIDOcaine 1% w/epiNEPHrine 1:200,000 30ml vial IM ONE (07:55)
[2019-03-07] MEDS ORDERED: LIDOcaine 1% w/EPI 1:100,000 30ml vial (MDV) IJ ONE (08:00)
== END 2019-03-07 08:45 | disposition home or self-care (01) ==
LOC: ER 07:07
DX: L72.3 Sebaceous cyst (principal); E78.00 Pure hypercholesterolemia, unspecified; I10 Essential (primary) hypertension; E11.9 Type 2 diabetes mellitus without complications; G89.29 Other chronic pain; Z86.69 Personal history of other diseases of the nervous system and sense organs; Z98.890 Other specified postprocedural states; Z79.4 Long term (current) use of insulin; Z79.899 Other long term (current) drug therapy
CPT/HCPCS: 10060; 99283

== ENCOUNTER 2019-03-22 07:24 | Emergency (ER) | payer MEDICAID ==
[~2019-03-22] VITALS: Ht 175.3 cm; Wt 97.7 kg
[2019-03-22] MEDS ORDERED: nitroGLYCERIN 1gm ointment UD TP ONE (08:00)
[2019-03-22 08:02] LABS: LYMPHOCYTES # (AUTO) 0.7 X10'3 (1.1-4.8); MONOCYTES # (AUTO) 0.4 X10'3 (0-0.9)
[2019-03-22 08:04] LABS: BASOPHILS % (AUTO) 0.6 % (0-1); EOSINOPHILS % (AUTO) 0.8 % (0-6); LYMPHOCYTES % (AUTO) 16.1 % (21-51); MEAN CORPUSCULAR HEMOGLOBIN 34.1 PG (27.0-31.0); MEAN CORPUSCULAR HGB CONC 32.9 g/dL (33.0-36.5); MEAN CORPUSCULAR VOLUME 103.6 FL (78-98); MEAN PLATELET VOLUME 11.5 FL (7.4-10.4); MONOCYTES % (AUTO) 10.1 % (2-12); NEUTROPHILS # (AUTO) 3.2 X10'3 (1.8-7.7); NEUTROPHILS % (AUTO) 72.4 % (42-75); PLATELET COUNT 90 X10'3 (140-440); RED BLOOD COUNT 1.98 X10'6 (4.70-6.10); RED CELL DISTRIBUTION WIDTH 23.7 % (11.5-14.5); WHITE BLOOD COUNT 4.4 X10'3 (4.5-11.0)
[2019-03-22 08:11] LABS: PARTIAL THROMBOPLASTIN TIME 28 SECONDS (22-32)
[2019-03-22 08:13] LABS: ALANINE AMINOTRANSFERASE 17 U/L (12-78); ALBUMIN/GLOBULIN RATIO 0.8 (1.1-1.5); ALKALINE PHOSPHATASE 24 IU/L (46-116); ANION GAP 9 (8-16); ASPARTATE AMINO TRANSFERASE 15 U/L (10-37); BILIRUBIN,TOTAL 0.4 MG/DL (0.1-1.0); BLOOD UREA NITROGEN 46 MG/DL (7-18); BUN/CREATININE RATIO 14.5 (5.4-32.0); CALCIUM 8.5 MG/DL (8.5-10.1); CHLORIDE 108 MMOL/L (99-107); CREATININE 3.18 MG/DL (0.60-1.10); GLUCOSE 244 MG/DL (70-104); POTASSIUM 5.1 MMOL/L (3.5-5.1); SODIUM 140 MMOL/L (135-145); TOTAL CARBON DIOXIDE 23.5 MMOL/L (24-32); TOTAL PROTEIN 6.9 G/DL (6.4-8.2); eGFR 20 ML/MIN
[2019-03-22 08:31] LABS: HEMATOCRIT 20.5 % (42.0-52.0); HEMOGLOBIN 6.7 g/dl (14.0-17.9)
[2019-03-22 08:33] VITALS: BP 141/73
[2019-03-22] MEDS ORDERED: NITR0.4T51 SL (08:40)
[2019-03-22 08:41] LABS: TOTAL CELLS COUNTED 100
[2019-03-22 08:42] LABS: ANISOCYTOSIS 3+; PLATELET ESTIMATE DECREASED
[2019-03-22 08:43] LABS: POLYCHROMASIA FEW; STOMATOCYTES 1+
[2019-03-22 08:44] LABS: HYPOCHROMASIA 1+
[2019-03-22 08:45] LABS: TEAR DROP CELLS FEW
[2019-03-22 08:46] LABS: LARGE PLATELETS MODERATE
== END 2019-03-22 09:04 | disposition left against medical advice (07) ==
LOC: ER 07:24
DX: R07.89 Other chest pain (principal); E78.00 Pure hypercholesterolemia, unspecified; I10 Essential (primary) hypertension; E11.9 Type 2 diabetes mellitus without complications; G89.29 Other chronic pain; Z86.69 Personal history of other diseases of the nervous system and sense organs; Z98.890 Other specified postprocedural states; Z79.4 Long term (current) use of insulin; Z79.899 Other long term (current) drug therapy
CPT/HCPCS: 36415; 71045; 80053; 84484; 85025; 85610; 85730; 93005; 99284

== ENCOUNTER 2019-04-03 08:34 | Emergency (ER) | payer MEDICAID ==
[~2019-04-03] VITALS: Ht 175.3 cm; Wt 102.8 kg
[~2019-04-03 08:34] MED LIST changes: +NITR0.4T51 SL
[2019-04-03] MEDS ORDERED: LIDOcaine 2% 10ml TOPICAL JELLY (Urojet) MM ONE (08:50)
[2019-04-03 09:43] VITALS: BP 162/69
[2019-04-03 09:52] LABS: ALANINE AMINOTRANSFERASE 14 U/L (12-78); ALBUMIN 3.1 G/DL (3.4-5.0); ALBUMIN/GLOBULIN RATIO 0.7 (1.1-1.5); ALKALINE PHOSPHATASE 25 IU/L (46-116); ANION GAP 10 (8-16); ASPARTATE AMINO TRANSFERASE 15 U/L (10-37); BILIRUBIN,TOTAL 0.4 MG/DL (0.1-1.0); BLOOD UREA NITROGEN 46 MG/DL (7-18); BUN/CREATININE RATIO 12.8 (5.4-32.0); CALCIUM 8.7 MG/DL (8.5-10.1); CHLORIDE 110 MMOL/L (99-107); GLUCOSE 61 MG/DL (70-104); POTASSIUM 5.2 MMOL/L (3.5-5.1); SODIUM 143 MMOL/L (135-145); TOTAL CARBON DIOXIDE 23.3 MMOL/L (24-32); TOTAL PROTEIN 7.4 G/DL (6.4-8.2); eGFR 17 ML/MIN
[2019-04-03 09:58] LABS: PLATELET COUNT 75 X10'3 (140-440)
[2019-04-03 10:00] LABS: MEAN CORPUSCULAR HEMOGLOBIN 35.3 PG (27.0-31.0); MEAN CORPUSCULAR HGB CONC 32.1 g/dL (33.0-36.5); MEAN CORPUSCULAR VOLUME 109.7 FL (78-98); MEAN PLATELET VOLUME 11.4 FL (7.4-10.4); RED BLOOD COUNT 1.72 X10'6 (4.70-6.10); RED CELL DISTRIBUTION WIDTH 24.6 % (11.5-14.5); WHITE BLOOD COUNT 5.4 X10'3 (4.5-11.0)
[2019-04-03 10:07] LABS: CLARITY,URINE CLEAR (Clear); COLOR,URINE YELLOW (Yellow); GLUCOSE, URINE NEGATIVE (Neg); KETONES,URINE NEGATIVE (Neg); LEUKOCYTE ESTERASE ,URINE NEGATIVE (Neg); NITRITES, URINE NEGATIVE (Neg); OCCULT BLOOD,URINE TRACE-LYSED (Neg); PH,URINE 5.5 (4.8-8.0); PROTEIN,URINE 100 mg/dl (Neg); UROBILINOGEN,URINE 0.2 E.U/dL (0.2-1.0)
[2019-04-03 10:11] LABS: HEMATOCRIT 18.9 % (42.0-52.0); HEMOGLOBIN 6.1 g/dl (14.0-17.9)
[2019-04-03 10:13] LABS: UA COLLECTION TYPE FOLEY CATH
[2019-04-03 10:28] LABS: BACTERIA,URINE NONE SEEN /HPF (Neg); COARSE GRANULAR CAST 0-3 /LPF (NEGATIVE); MUCUS STRANDS FEW /LPF (Neg); RBC,URINE 0-2 /HPF (0-2); SQUAMOUS EPITHELIAL CELL,UR NONE SEEN /LPF (FEW); WBC,URINE 0-4 /HPF (0-4)
[2019-04-03] MEDS ORDERED: DOXY-1 PO (10:28)
[2019-04-03] MEDS ORDERED: lactulose 20gm/30ml cup PO ONE (10:30)
[2019-04-03 10:57] LABS: ANISOCYTOSIS 3+; NUCLEATED RED BLOOD CELLS 1 /100WBC (0-0); PLATELET ESTIMATE DECREASED; TOTAL CELLS COUNTED 100
[2019-04-03 10:58] LABS: HYPOCHROMASIA 1+; POLYCHROMASIA 2+; TEAR DROP CELLS 1+
== END 2019-04-03 10:40 | disposition home or self-care (01) ==
LOC: ER 08:35
DX: R33.9 Retention of urine, unspecified (principal); N41.8 Other inflammatory diseases of prostate; E87.5 Hyperkalemia; R10.2 Pelvic and perineal pain; I12.9 Hypertensive chronic kidney disease with stage 1 through stage 4 chronic kidney disease, or unspecified chronic kidney disease; E11.22 Type 2 diabetes mellitus with diabetic chronic kidney disease; N18.9 Chronic kidney disease, unspecified; G89.29 Other chronic pain; E78.00 Pure hypercholesterolemia, unspecified; Z98.890 Other specified postprocedural states; Z79.4 Long term (current) use of insulin
CPT/HCPCS: 36415; 51702; 80053; 81001; 85025; 99284

== ENCOUNTER 2019-04-04 10:50 | Inpatient (IN) | payer MEDICAID ==
[2019-04-04] VITALS (7 sets, daily range): BP systolic 106–148; BP diastolic 55–75
[~2019-04-04] VITALS: Ht 175.3 cm; Wt 98.2 kg
[~2019-04-04 10:50] MED LIST changes: +DOXY-1 PO
[2019-04-04 11:49] LABS: MEAN CORPUSCULAR VOLUME 108.6 FL (78-98); RED BLOOD COUNT 1.71 X10'6 (4.70-6.10); WHITE BLOOD COUNT 4.9 X10'3 (4.5-11.0)
[2019-04-04 11:51] LABS: MEAN CORPUSCULAR HEMOGLOBIN 35.2 PG (27.0-31.0); MEAN CORPUSCULAR HGB CONC 32.4 g/dL (33.0-36.5); MEAN PLATELET VOLUME 10.7 FL (7.4-10.4); PLATELET COUNT 82 X10'3 (140-440); RED CELL DISTRIBUTION WIDTH 24.4 % (11.5-14.5)
[2019-04-04 11:57] LABS: HEMATOCRIT 18.5 % (42.0-52.0)
[2019-04-04] MEDS ORDERED: normal saline 1000ML IV soln IVB ONE (12:00)
[2019-04-04] MEDS ORDERED: ondansetron/PF 4mg/2ml inj IV ONE (12:00)
[2019-04-04] MEDS ORDERED: morphine 4 MG/ML inj SYRINge IV PRN (12:00)
[2019-04-04 12:18] LABS: ALANINE AMINOTRANSFERASE 14 U/L (12-78); ALBUMIN/GLOBULIN RATIO 0.7 (1.1-1.5); ALKALINE PHOSPHATASE 24 IU/L (46-116); ANION GAP 10 (8-16); ASPARTATE AMINO TRANSFERASE 12 U/L (10-37); BILIRUBIN,TOTAL 0.4 MG/DL (0.1-1.0); BLOOD UREA NITROGEN 51 MG/DL (7-18); BUN/CREATININE RATIO 13.2 (5.4-32.0); CALCIUM 7.9 MG/DL (8.5-10.1); CHLORIDE 110 MMOL/L (99-107); CREATININE 3.87 MG/DL (0.60-1.10); GLUCOSE 147 MG/DL (70-104); POTASSIUM 5.7 MMOL/L (3.5-5.1); SODIUM 142 MMOL/L (135-145); TOTAL CARBON DIOXIDE 21.7 MMOL/L (24-32); TOTAL PROTEIN 7.1 G/DL (6.4-8.2); eGFR 16 ML/MIN
[2019-04-04 12:22] LABS: PARTIAL THROMBOPLASTIN TIME 29 SECONDS (22-32)
[2019-04-04] MEDS ORDERED: nitroGLYCERIN 0.4mg SUBLingual tab SL PRN (12:25)
[2019-04-04] MEDS ORDERED: aspirin 81mg tab.chew PO ONE (12:25)
[2019-04-04 12:32] LABS: TOTAL CELLS COUNTED 100
[2019-04-04 12:35] LABS: ANISOCYTOSIS 3+; PLATELET ESTIMATE DECREASED; POLYCHROMASIA 2+; TEAR DROP CELLS 1+
[2019-04-04 12:36] LABS: LARGE PLATELETS FEW
[2019-04-04] MEDS ORDERED: potassium CL 10mEq/100ml bag 100 ML IV PRN ×2 (13:35)
[2019-04-04] MEDS ORDERED: magnesium 4gm in 100ml NS 100 ML IV PRN (13:35)
[2019-04-04] MEDS ORDERED: potassium Cl 20 mEq SR tablet PO PRN ×2 (13:35)
[2019-04-04] MEDS ORDERED: acetaminophen 325mg tablet PO PRN (13:35)
[2019-04-04] MEDS ORDERED: ondansetron/PF 4mg/2ml inj IV PRN (13:35)
[2019-04-04] MEDS ORDERED: glucagon, human recombinant 1mg kit SUBCUT PRN (13:35)
[2019-04-04] MEDS ORDERED: MESSAGE TO PHARMACY PO ONE (13:35)
[2019-04-04] MEDS ORDERED: dextrose ORAL solution 15 GM/59 ML bottle PO PRN ×2 (13:35)
[2019-04-04] MEDS ORDERED: magnesium hydroxide 30ml (MOM) UD suspension PO PRN (13:35)
[2019-04-04] MEDS ORDERED: magnesium 2GM in 50ml NS 50 ML IV PRN (13:35)
[2019-04-04] MEDS ORDERED: insulin Lispro (HumaLOG) vial - multi-dose SQ SCH (13:35)
[2019-04-04] MEDS ORDERED: mag hydrox/Alum hydrox/simeth 30ml oral suspension PO PRN (13:35)
[2019-04-04] MEDS ORDERED: dextrose 50%-water 50ml dispensing syringe IV PRN ×2 (13:35)
[2019-04-04 15:12] LABS: HEMOGLOBIN A1C 5.8 % (4.5-6.2)
[2019-04-04] MEDS ORDERED: sodium polystyrene sulfonate 15gm/60ml oral suspension PO ONE (15:25)
--- NOTE | 2019-04-04 15:35 | NUR ---
Dr. Orozco called and informed of pts 3 hour troponin increased to 0.89. No new orders received. Advised to continue and run blood transfusion at rate of 150-175ml/hr.
[2019-04-04] MEDS: insulin glargine (Lantus) pen - multi-dose SQ SCH (21:00)
[2019-04-05] VITALS (10 sets, daily range): BP systolic 124–167; BP diastolic 61–84
[2019-04-05 00:08] LABS: MEAN CORPUSCULAR HEMOGLOBIN 34.5 PG (27.0-31.0); MEAN CORPUSCULAR HGB CONC 33.3 g/dL (33.0-36.5); MEAN CORPUSCULAR VOLUME 103.7 FL (78-98); MEAN PLATELET VOLUME 11.3 FL (7.4-10.4); PLATELET COUNT 74 X10'3 (140-440); RED BLOOD COUNT 1.83 X10'6 (4.70-6.10); RED CELL DISTRIBUTION WIDTH 25.4 % (11.5-14.5); WHITE BLOOD COUNT 4.2 X10'3 (4.5-11.0)
[2019-04-05 00:10] LABS: HEMOGLOBIN 6.3 g/dl (14.0-17.9)
--- NOTE | 2019-04-05 00:14 | NUR ---
called Sandy about Hgb 6.3 Hct 18, will continue to monitor pt
--- NOTE | 2019-04-05 04:53 | NUR ---
[place]ee documentation: I have reviewed and agree with all interventions, assessments performed and documented by Deidra FERGUSON Addendum: 04/05/19 at 0502 by Kimmy Campa RN ALSO AGREE WITH ALL MEDICATIONS GIVEN THIS SHIFT
[2019-04-05 06:43] LABS: ALANINE AMINOTRANSFERASE 13 U/L (12-78); ALBUMIN 2.7 G/DL (3.4-5.0); ALBUMIN/GLOBULIN RATIO 0.7 (1.1-1.5); ALKALINE PHOSPHATASE 23 IU/L (46-116); ANION GAP 6 (8-16); ASPARTATE AMINO TRANSFERASE 17 U/L (10-37); BILIRUBIN,TOTAL 0.4 MG/DL (0.1-1.0); BLOOD UREA NITROGEN 53 MG/DL (7-18); CALCIUM 7.9 MG/DL (8.5-10.1); CHLORIDE 112 MMOL/L (99-107); CREATININE 3.79 MG/DL (0.60-1.10); GLUCOSE 74 MG/DL (70-104); MAGNESIUM 1.9 MG/DL (1.5-2.4); POTASSIUM 5.8 MMOL/L (3.5-5.1); SODIUM 143 MMOL/L (135-145); TOTAL CARBON DIOXIDE 25.4 MMOL/L (24-32); TOTAL PROTEIN 6.7 G/DL (6.4-8.2); eGFR 16 ML/MIN
--- NOTE | 2019-04-05 06:48 | NUR ---
Patient in room PCU 3012. I have received report from PHYLLIS Oneal and PHYLLIS Gay and had the opportunity to ask questions and assume patient care. Pt was awake. Pt is agitated; he asked when the doctors would be around, and that he was going to sign himself out AMA at 0800 if the doctors don't come by then. Per noc shift, the pt had been saying he is going to leave today all night. Will continue to monitor.
[2019-04-05] MEDS ORDERED: K and/or MAG REPLACEMENT MC SCH (08:00)
--- NOTE | 2019-04-05 08:25 | NUR ---
Sent to Dr Hernandez PAGER ID: [phone] MESSAGE: RE: Gabriel Palomo [id number]. Pt reports "04/08" pain. No orders for pain medications. -Faith [phone]
[2019-04-05] MEDS ORDERED: HYDROcodone/acetaminophen 5mg/325mg tablet PO PRN (08:30)
[2019-04-05] MEDS: HYDROcodone/acetaminophen 10/325mg tab PO PRN ×3 (09:02→21:28)
--- NOTE | 2019-04-05 09:27 | NUR ---
Sent to Dr Orozco PAGER ID: [phone] MESSAGE: RE: Gabriel Palomo. Pt med rec needs to be addressed. No meds in MAR. brought a nitro patch and placed it on pt just now. Only 0.4mg SL tab nitro in rec. Pt and claim Dr Escobedo prescribed one patch BiD. -Faith [phone]
--- NOTE | 2019-04-05 09:27 | NUR ---
Pt exhibiting manipulative behavior between staff members. The pt stated he threw his tray twice, but with his and the charge nurse he stated that he doesn't know how it happened, and that he knocked it down accidentally. The pt's wristband was missing; he stated that it was all shredded up and he doesn't know how it happened. The pt stated he will not leave A after speaking with Dr Orozco. The pt is agitated. Will continue to monitor and assess.
[2019-04-05 09:29] LABS: HEMOGLOBIN 7.5 g/dl (14.0-17.9); PLATELET COUNT 94 X10'3 (140-440)
[2019-04-05 09:34] LABS: HEMATOCRIT 22.7 % (42.0-52.0); MEAN CORPUSCULAR HEMOGLOBIN 34.1 PG (27.0-31.0); MEAN CORPUSCULAR HGB CONC 32.9 g/dL (33.0-36.5); MEAN CORPUSCULAR VOLUME 103.5 FL (78-98); MEAN PLATELET VOLUME 11.1 FL (7.4-10.4); RED CELL DISTRIBUTION WIDTH 25.9 % (11.5-14.5); WHITE BLOOD COUNT 6.4 X10'3 (4.5-11.0)
--- NOTE | 2019-04-05 09:41 | NUR ---
The pt's placed a 0.4mg nitro patch on the pt's chest. When asked what it was, she stated that he gets one patch BiD. Charge nurse spoke with pt about the patch; the stated they reported it on his med rec, however, there was only a 0.4mg SL tab of nitroglycerin in his med rec. The pt's stated that Dr Escobedo prescribed the nitro patch BiD. They were informed that we need to use our own pharmacy in the hospital, and to keep their home meds for home. The pt's BP this morning was 167/80. As the pt was in the bathroom, the pts was entering to aide him; she asked to remove the patch until we can get a Rx for it in hospital. She stated that she would.
[2019-04-05] MEDS ORDERED: venlafaxine XR 37.5mg cap (Q24H) PO SCH (10:00)
[2019-04-05 11:01] LABS: ANISOCYTOSIS 3+; HYPOCHROMASIA 1+; PLATELET ESTIMATE DECREASED; POLYCHROMASIA 1+; TOTAL CELLS COUNTED 100
[2019-04-05 11:02] LABS: STOMATOCYTES 1+
[2019-04-05] MEDS: fenofibrate 145mg tablet PO SCH (12:11)
[2019-04-05] MEDS: tamsulosin 0.4mg capsule PO SCH (12:11)
[2019-04-05] MEDS: NIFEdipine XL 30mg tablet PO SCH (12:13)
[2019-04-05] MEDS: carVEDilol 12.5mg tablet PO SCH ×2 (12:13→19:59)
[2019-04-05] MEDS ORDERED: gabapentin 300mg capsule PO SCH (13:00)
--- NOTE | 2019-04-05 16:30 | NUR ---
Sent to Dr Orozco PAGER ID: [phone] MESSAGE: RE: Gabriel Palomo [id number]. Lab wants to know if they should do the BMP (1600) and hemogram (1800) at the same time so the pt doesn't need to be poked twice. -Faith [phone]
[2019-04-05 17:04] LABS: HEMATOCRIT 26.7 % (42.0-52.0); HEMOGLOBIN 9.1 g/dl (14.0-17.9); MEAN CORPUSCULAR HEMOGLOBIN 34.4 PG (27.0-31.0); MEAN CORPUSCULAR HGB CONC 33.9 g/dL (33.0-36.5); MEAN CORPUSCULAR VOLUME 101.3 FL (78-98); MEAN PLATELET VOLUME 10.8 FL (7.4-10.4); PLATELET COUNT 88 X10'3 (140-440); RED BLOOD COUNT 2.64 X10'6 (4.70-6.10); RED CELL DISTRIBUTION WIDTH 24.8 % (11.5-14.5); WHITE BLOOD COUNT 7.6 X10'3 (4.5-11.0)
[2019-04-05 17:08] LABS: ALBUMIN 3.2 G/DL (3.4-5.0); ANION GAP 14 (8-16); BLOOD UREA NITROGEN 59 MG/DL (7-18); BUN/CREATININE RATIO 16.1 (5.4-32.0); CALCIUM 8.9 MG/DL (8.5-10.1); CHLORIDE 109 MMOL/L (99-107); CREATININE 3.67 MG/DL (0.60-1.10); GLUCOSE 174 MG/DL (70-104); SODIUM 142 MMOL/L (135-145); TOTAL CARBON DIOXIDE 19.3 MMOL/L (24-32); eGFR 17 ML/MIN
[2019-04-05 17:13] LABS: POTASSIUM 6.1 MMOL/L (3.5-5.1)
[2019-04-05] MEDS ORDERED: albuterol 2.5 MG/3 ML nebule NEB ONE (17:45)
[2019-04-05] MEDS ORDERED: calcium chloride inj. 1,000 MG in normal saline 100ml IV soln 90 ML IV ONE (17:45)
[2019-04-05] MEDS ORDERED: dextrose 50%-water 50ml dispensing syringe IV ONE (17:45)
[2019-04-05] MEDS ORDERED: insulin Lispro (HumaLOG) vial - multi-dose SQ STA (17:45)
[2019-04-05] MEDS ORDERED: sodium bicarbonate (8.4%) inj. 50 MEQ in normal saline 1000ml 1,000 ML IV SCH (17:45)
--- NOTE | 2019-04-05 17:45 | NUR ---
Sent to Dr Orozco PAGER ID: [phone] MESSAGE: RE: Gabriel Palomo [id number]. CRITICAL VALUE: Xuan 6.1. -Faith [phone]
[2019-04-05] MEDS ORDERED: sodium polystyrene sulfonate 15gm/60ml oral suspension PO ONE (17:50)
--- NOTE | 2019-04-05 18:35 | NUR ---
Patient in room PCU 3028. I have received report from PHYLLIS GARCIA and had the opportunity to ask questions and assume patient care.
[2019-04-05] MEDS ORDERED: sodium bicarbonate (8.4%) inj. 50 MEQ in dextrose 5%-water 1,000 ML IV SCH (18:46)
--- NOTE | 2019-04-05 18:47 | NUR ---
Problems reprioritized. Patient report given, questions answered & plan of care reviewed with PHYLLIS Vargas.
[2019-04-05] MEDS: ferrous sulfate 325mg tablet PO SCH (19:59)
[2019-04-05] MEDS: calcium acetate 667mg (PhosLO) capsule PO SCH (19:59)
[2019-04-05] MEDS: insulin glargine (Lantus) pen - multi-dose SQ SCH (21:00)
[2019-04-06 00:59] LABS: HEMATOCRIT 25.6 % (42.0-52.0); HEMOGLOBIN 8.7 g/dl (14.0-17.9); MEAN CORPUSCULAR HEMOGLOBIN 34.3 PG (27.0-31.0); MEAN CORPUSCULAR VOLUME 100.9 FL (78-98); MEAN PLATELET VOLUME 11.1 FL (7.4-10.4); PLATELET COUNT 96 X10'3 (140-440); RED BLOOD COUNT 2.54 X10'6 (4.70-6.10); RED CELL DISTRIBUTION WIDTH 24.3 % (11.5-14.5)
[2019-04-06 03:00] VITALS: BP 163/77
--- NOTE | 2019-04-06 06:22 | NUR ---
Problems reprioritized. Patient report given, questions answered & plan of care reviewed with PHYLLIS MAGALLANES.
[2019-04-06 06:25] LABS: HEMATOCRIT 25.1 % (42.0-52.0); HEMOGLOBIN 8.4 g/dl (14.0-17.9); MEAN CORPUSCULAR HEMOGLOBIN 34.3 PG (27.0-31.0); MEAN CORPUSCULAR HGB CONC 33.6 g/dL (33.0-36.5); MEAN CORPUSCULAR VOLUME 102.2 FL (78-98); MEAN PLATELET VOLUME 10.8 FL (7.4-10.4); PLATELET COUNT 87 X10'3 (140-440); RED BLOOD COUNT 2.46 X10'6 (4.70-6.10); RED CELL DISTRIBUTION WIDTH 24.5 % (11.5-14.5); WHITE BLOOD COUNT 5.4 X10'3 (4.5-11.0)
--- NOTE | 2019-04-06 06:30 | NUR ---
Patient in room PCU 3028. I have received report from PHYLLIS Vargas and had the opportunity to ask questions and assume patient care.
[2019-04-06 07:48] LABS: ALANINE AMINOTRANSFERASE 13 U/L (12-78); ALBUMIN 2.9 G/DL (3.4-5.0); ALBUMIN/GLOBULIN RATIO 0.6 (1.1-1.5); ALKALINE PHOSPHATASE 26 IU/L (46-116); ANION GAP 9 (8-16); ASPARTATE AMINO TRANSFERASE 18 U/L (10-37); BILIRUBIN,TOTAL 0.5 MG/DL (0.1-1.0); BLOOD UREA NITROGEN 57 MG/DL (7-18); BUN/CREATININE RATIO 14.7 (5.4-32.0); CALCIUM 9.2 MG/DL (8.5-10.1); CHLORIDE 110 MMOL/L (99-107); CREATININE 3.89 MG/DL (0.60-1.10); GLUCOSE 184 MG/DL (70-104); MAGNESIUM 2.1 MG/DL (1.5-2.4); PHOSPHORUS 4.2 MG/DL (2.3-4.5); POTASSIUM 5.1 MMOL/L (3.5-5.1); SODIUM 143 MMOL/L (135-145); TOTAL CARBON DIOXIDE 23.6 MMOL/L (24-32); TOTAL PROTEIN 7.6 G/DL (6.4-8.2); eGFR 16 ML/MIN
[2019-04-06] MEDS ORDERED: gabapentin 300mg capsule PO SCH (08:00)
[2019-04-06] MEDS: fenofibrate 145mg tablet PO SCH (08:10)
[2019-04-06] MEDS: calcium acetate 667mg (PhosLO) capsule PO SCH (08:11)
[2019-04-06] MEDS: NIFEdipine XL 30mg tablet PO SCH (08:11)
[2019-04-06] MEDS: tamsulosin 0.4mg capsule PO SCH (08:11)
[2019-04-06] MEDS: ferrous sulfate 325mg tablet PO SCH (08:11)
[2019-04-06] MEDS: carVEDilol 12.5mg tablet PO SCH (08:11)
[2019-04-06] MEDS: HYDROcodone/acetaminophen 10/325mg tab PO PRN (08:13)
--- NOTE | 2019-04-06 10:01 | NUR ---
Gotti cATH REMOVED PER md ORDER and pt insistance. Tolerated well by pt. 350cc of clear yellow urine
--- NOTE | 2019-04-06 10:45 | NUR ---
pt discharged to home with . He had all belongings, discharge instructions and papers were signed. He was taken to curb by ancillary in to private car.
== END 2019-04-06 10:47 | disposition home or self-care (01) | DRG 663 ==
LOC: ER 10:50 → ED HOLD 14:01 → PCU 3S 21:10
PROVIDERS: ADMIT Family Medicine; ATTEND Family Medicine
PROC: 30233N1 Transfusion of Nonautologous Red Blood Cells into Peripheral Vein, Percutaneous Approach (ICD-10-PCS; 2019-04-04)
PROC: 30233N1 Transfusion of Nonautologous Red Blood Cells into Peripheral Vein, Percutaneous Approach (ICD-10-PCS; principal; 2019-04-05)
DX: D64.9 Anemia, unspecified (principal); D69.6 Thrombocytopenia, unspecified; E11.22 Type 2 diabetes mellitus with diabetic chronic kidney disease; I24.9 Acute ischemic heart disease, unspecified; E11.65 Type 2 diabetes mellitus with hyperglycemia; E87.5 Hyperkalemia; N18.6 End stage renal disease; E78.00 Pure hypercholesterolemia, unspecified; G89.29 Other chronic pain; M54.9 Dorsalgia, unspecified; G47.33 Obstructive sleep apnea (adult) (pediatric); M41.9 Scoliosis, unspecified; Z79.4 Long term (current) use of insulin; Z79.899 Other long term (current) drug therapy; Z82.5 Family history of asthma and other chronic lower respiratory diseases; Z83.3 Family history of diabetes mellitus; Z87.891 Personal history of nicotine dependence; Z98.1 Arthrodesis status; Z82.49 Family history of ischemic heart disease and other diseases of the circulatory system
CPT/HCPCS: 36415; 71045; 80048; 80053; 82948; 83036; 83735; 83880; 84100; 84484; 85025; 85027; 85610; 85730; 86885; 86900; 86901; 86920; 87081; 93005; 93308; 94640; 99285; G0378; J1815; J2405; P9016

== ENCOUNTER 2019-04-14 04:36 | Emergency (ER) | payer MEDICAID ==
[~2019-04-14] VITALS: Ht 175.3 cm; Wt 98.0 kg
[~2019-04-14 04:36] MED LIST changes: -CETI10TA14 PO; -DOXY-1 PO; -FLUT16SP26; -MYCOL15CR TP
[2019-04-14 04:40] VITALS: BP 177/77
[2019-04-14 05:27] LABS: MEAN CORPUSCULAR HEMOGLOBIN 34.6 PG (27.0-31.0); MEAN CORPUSCULAR HGB CONC 32.7 g/dL (33.0-36.5); MEAN CORPUSCULAR VOLUME 105.7 FL (78-98); MEAN PLATELET VOLUME 11.2 FL (7.4-10.4); PLATELET COUNT 97 X10'3 (140-440); RED BLOOD COUNT 1.99 X10'6 (4.70-6.10); RED CELL DISTRIBUTION WIDTH 24.4 % (11.5-14.5); WHITE BLOOD COUNT 3.6 X10'3 (4.5-11.0)
[2019-04-14 05:33] LABS: HEMOGLOBIN 6.9 g/dl (14.0-17.9)
[2019-04-14 05:34] LABS: PARTIAL THROMBOPLASTIN TIME 29 SECONDS (22-32)
[2019-04-14 05:36] LABS: ALANINE AMINOTRANSFERASE 13 U/L (12-78); ALBUMIN 2.9 G/DL (3.4-5.0); ALBUMIN/GLOBULIN RATIO 0.7 (1.1-1.5); ALKALINE PHOSPHATASE 22 IU/L (46-116); ANION GAP 7 (8-16); ASPARTATE AMINO TRANSFERASE 13 U/L (10-37); BILIRUBIN,TOTAL 0.5 MG/DL (0.1-1.0); BLOOD UREA NITROGEN 47 MG/DL (7-18); BUN/CREATININE RATIO 15.9 (5.4-32.0); CALCIUM 8.7 MG/DL (8.5-10.1); CHLORIDE 112 MMOL/L (99-107); CREATININE 2.95 MG/DL (0.60-1.10); GLUCOSE 119 MG/DL (70-104); POTASSIUM 5.7 MMOL/L (3.5-5.1); SODIUM 143 MMOL/L (135-145); TOTAL CARBON DIOXIDE 23.8 MMOL/L (24-32); TOTAL PROTEIN 7.3 G/DL (6.4-8.2); eGFR 22 ML/MIN
[2019-04-14 06:17] LABS: ANISOCYTOSIS 3+; NUCLEATED RED BLOOD CELLS 2 /100WBC (0-0); PLATELET ESTIMATE DECREASED; TOTAL CELLS COUNTED 100
[2019-04-14 06:18] LABS: HYPOCHROMASIA 1+
[2019-04-14 06:19] LABS: POLYCHROMASIA FEW; SCHISTOCYTES FEW; TEAR DROP CELLS FEW
== END 2019-04-14 06:59 | disposition left against medical advice (07) ==
LOC: ER 04:37
DX: D64.89 Other specified anemias (principal); I13.0 Hypertensive heart and chronic kidney disease with heart failure and stage 1 through stage 4 chronic kidney disease, or unspecified chronic kidney disease; E11.22 Type 2 diabetes mellitus with diabetic chronic kidney disease; N18.9 Chronic kidney disease, unspecified; I50.9 Heart failure, unspecified; E78.00 Pure hypercholesterolemia, unspecified; G89.29 Other chronic pain; E87.70 Fluid overload, unspecified; E87.5 Hyperkalemia; D61.818 Other pancytopenia; Z86.69 Personal history of other diseases of the nervous system and sense organs; Z98.890 Other specified postprocedural states; Z79.4 Long term (current) use of insulin; Z79.899 Other long term (current) drug therapy
CPT/HCPCS: 36415; 71045; 80053; 83880; 84484; 85025; 85610; 85730; 93005; 99284

== ENCOUNTER 2019-08-09 20:29 | Emergency (ER) | payer MEDICAID ==
[~2019-08-09] VITALS: Ht 175.3 cm; Wt 93.6 kg
[~2019-08-09 20:29] MED LIST changes: -NITR0.4T51 SL
--- NOTE | 2019-08-09 20:37 | NUR ---
Patient pulled into room 19 for EKG. Patient demands nitro, "now! when are you going to get rid of my chest pain?". I asked the patient the reason for his visit and he states, "Isn't it obvious?". Patient states he has had, "Chest pain for three years now." He again tells me that he wants nitro, "Now!". I explained to the patient he needed an EKG first because nitro could be dangerous without knowing his rhythm. Patient states, "Fuck! I was just at [facility]. I should have just gone there! I'd be admitted by now already!" I asked the patient to stop yelling and reminded him we were here to help him. Patient continues to make snarky remarks as I wheel him immediately to a room after triage. Patient then states, "I need to use the restroom!" I asked if he needed to urinate or have a bowel movement and he just stands up and wanders off to the restroom. Primary RN notified of the patient's arrival to his room.
--- NOTE | 2019-08-09 20:50 | NUR ---
PT AND DEMANDING NITRO NOW. CP 10/10, AND PT REFUSES TO ANSWER ASSESSMENT QUESTIONS DUE TO PAIN. PT SITTING QUIETLY IN BED MAKING REMARKS ABOUT THE HORRIBLE CARE. PT WALKED WITH STEADY GAIT TO BATHROOM WITHOUT TELLING RN. ALERTED ROBERTA FRANKLIN ABOUT CP, HIGH BP, AND PT REQUEST FOR NITRO. ROSI STATED SHE WOULD LOOK AT CHART, ORDERS TO FOLLOW
[2019-08-09 20:54] LABS: EOSINOPHILS % (AUTO) 0.7 % (0-6); HEMATOCRIT 29.9 % (42.0-52.0); LYMPHOCYTES # (AUTO) 0.4 X10'3 (1.1-4.8); MEAN CORPUSCULAR HGB CONC 33.3 g/dL (33.0-36.5); MONOCYTES # (AUTO) 0.1 X10'3 (0-0.9); NEUTROPHILS # (AUTO) 0.7 X10'3 (1.8-7.7); WHITE BLOOD COUNT 1.2 X10'3 (4.5-11.0)
[2019-08-09 20:56] LABS: HEMOGLOBIN 9.9 g/dl (14.0-17.9); LYMPHOCYTES % (AUTO) 30.5 % (21-51); MEAN CORPUSCULAR VOLUME 96.1 FL (78-98); MEAN PLATELET VOLUME 10.2 FL (7.4-10.4); MONOCYTES % (AUTO) 8.5 % (2-12); NEUTROPHILS % (AUTO) 58.3 % (42-75); PLATELET COUNT 149 X10'3 (140-440); RED BLOOD COUNT 3.11 X10'6 (4.70-6.10); RED CELL DISTRIBUTION WIDTH 23.3 % (11.5-14.5)
[2019-08-09 21:00] LABS: ALANINE AMINOTRANSFERASE 19 U/L (12-78); ALBUMIN 3.2 G/DL (3.4-5.0); ALBUMIN/GLOBULIN RATIO 0.8 (1.1-1.5); ALKALINE PHOSPHATASE 34 IU/L (46-116); ANION GAP 9 (8-16); ASPARTATE AMINO TRANSFERASE 15 U/L (10-37); BILIRUBIN,TOTAL 0.8 MG/DL (0.1-1.0); BLOOD UREA NITROGEN 60 MG/DL (7-18); BUN/CREATININE RATIO 18.6 (5.4-32.0); CALCIUM 8.8 MG/DL (8.5-10.1); CHLORIDE 102 MMOL/L (99-107); CREATININE 3.23 MG/DL (0.60-1.10); SODIUM 130 MMOL/L (135-145); TOTAL CARBON DIOXIDE 18.9 MMOL/L (24-32); TOTAL PROTEIN 7.4 G/DL (6.4-8.2); eGFR 20 ML/MIN
[2019-08-09 21:02] LABS: GLUCOSE 546 MG/DL (70-104); POTASSIUM 6.2 MMOL/L (3.5-5.1)
[2019-08-09 21:36] LABS: TOTAL CELLS COUNTED 100
[2019-08-09 21:37] LABS: ANISOCYTOSIS 3+
[2019-08-09 21:38] LABS: GIANT PLATELET FEW; LARGE PLATELETS MODERATE
--- NOTE | 2019-08-09 22:06 | NUR ---
PT CONTINUES TO TAKE OFF VS MONITORS TO GO TO BATHROOM WITHOUT TELLING STAFF. PT REFUSING MONITOR. PT REFUSES TO SIT IN THE BED - IS IN BED NOW. PT IN CHAIR TALKING WITH IN NO APPARENT DISTRESS.
[2019-08-09] MEDS ORDERED: calcium chloride 100 MG/1 ML inj IV ONE (22:20)
[2019-08-09] MEDS ORDERED: sodium polystyrene sulfonate 15gm/60ml oral suspension PO ONE (22:20)
[2019-08-09] MEDS ORDERED: furosemide 10 MG/1 ML 10ml inj IV ONE (22:20)
[2019-08-09] MEDS ORDERED: insulin regular, human 10 units/0.1 ml syringe IV ONE (22:25)
[2019-08-09 22:55] VITALS: BP 155/74
--- NOTE | 2019-08-09 23:43 | NUR ---
PT STILL TAKING OFF VITAL MONITORS. PT AND ARE REFUSING 2ND LAB DRAW FOR TROPONIN AND REFUSING TO WAIT ANY LONGER AND LEAVING AMA. ALEJANDRA FRANKLIN AND CHING JEFFRIES RN AWARE.
== END 2019-08-09 23:51 | disposition left against medical advice (07) ==
LOC: ER 20:29
DX: R07.89 Other chest pain (principal); I12.9 Hypertensive chronic kidney disease with stage 1 through stage 4 chronic kidney disease, or unspecified chronic kidney disease; E11.22 Type 2 diabetes mellitus with diabetic chronic kidney disease; N18.9 Chronic kidney disease, unspecified; E87.5 Hyperkalemia; N17.9 Acute kidney failure, unspecified; E78.00 Pure hypercholesterolemia, unspecified; G89.29 Other chronic pain; Z79.899 Other long term (current) drug therapy; Z79.4 Long term (current) use of insulin
CPT/HCPCS: 36415; 71045; 80053; 82948; 84484; 85025; 93005; 96374; 96375; 99285; J1815; J1940